=== PATIENT | female | born 1930 | race Caucasian/White ===

== ENCOUNTER → 2016-04-02 | Outpatient (CLI) | payer MEDICARE, BC ==
[~2016-04-02] MED LIST: ACETAMINOPHEN PO; ACTONEL; ACTONEL PO; ALDACTONE25 MG; ALLOPURINOL300 MG PO; AMIODARONE; ANTI-DIARRHEAL2 M1 PO; ASA; ASPIRIN EC81 M1 PO; ASPIRIN PO; ASPIRIN81 M2 PO; ATENOLOL PO; ATIVAN PO; ATIVAN0.5 MG PO; AZITHROMYCIN250 MG PO; AZMACORT20 GM; AZMACORT20 GM INH; BAYER CHEWABLE81 MG PO; BISACODYL10 MG/SUPP PR; BONINE PO; CALCIUM 500 + D1 TAB PO; CARTIA XT PO; CHERATUSSIN AC118 ML; CIPRO PO; CLARITIN10 M2 PO; CLARITIN10 M3 PO; CLEOCIN PO; COLACE PO; COLCHICINE PO; COLCRYS0.6 M2 PO; COUMADIN; COUMADIN PO; COUMADIN2.5 MG PO; COUMADIN5 MG; COUMADIN5 MG PO; DARVOCET-N 1001 TA1 PO; DIOVAN PO; FERROUS GL325 ( 36 ) PO; FERROUS SULFATE PO; FLONASE 0.05% N16 G1; FLONASE16 GM; FUROSEMIDE40 MG PO; HUMIBID-LA600 MG PO; HUMIBID1200 MG PO; IMDUR-ER60 M1 PO; IMDUR-ER60 MG; IMDUR-ER60 MG PO; INDOMETHACIN50 MG PO; IRON325 ( 651 PO; KCL 10% PO; KCL PO; KEFLEX500 M1 PO; KLOR-CON PO; LANOXIN PO; LASIX PO; LASIX20 MG PO; LEVAQUIN PO; LOPRESSOR PO; LORAZEPAM1 MG; LOVENOX SUBQ; MECLIZINE 25 MG; METOPROLOL; METOPROLOL SUCC50 MG PO; METOPROLOL TART25 MG PO; MICRO-K10 MEQ PO; MOBIC; MOBIC PO; MONTELUKAST SOD10 MG; MONTELUKAST SOD10 MG PO; NEPHROCAPS CAPSU1 MG PO; NEPHROCAPS1 CAP PO; NEURONTIN; NEURONTIN PO; OYSTER CALCIUM500 MG PO; PANTOPRAZOLE SO40 MG PO; POTASSIUM CHLO10 ME1 PO; POTASSIUM CHLO10 MEQ; POTASSIUM CL; POTASSIUM20 MEQ/15 PO; PRESERVISION1 EA PO; PROTONIX PO; RENAL SOFTGEL1 MG; REQUIP0.25 MG; REQUIP0.25 MG PO; REQUIP1 MG PO; REQUIP5 MG PO; ROPINIROLE HC0.25 MG PO; SENNA PO; SENOKOT TO GO8.6 MG; SINGULAIR PO; SOTALOL120 MG PO; TOPROL XL 50 MG50 MG PO; TOPROL XL PO; TYLENOL #3 PO; TYLENOL ES; TYLENOL EXTRA500 M1 PO; VICODIN 5/500 T1 TAB PO; VICODIN PO; VISION VITAMIN1 EACH PO; ZETIA; ZETIA PO; ZITHROMAX PO; ZYLOPRIM PO; [UNRECOGNIZED DRUG - OTHER] PO
== END | disposition home or self-care (01) ==
LOC: CRAD 09:17
DX: R13.10 Dysphagia, unspecified (principal)
CPT/HCPCS: 74230; 92611; G8996-GN; G8997-GN; G8998-GN

== ENCOUNTER → 2016-05-09 | Outpatient (CLI) | payer MEDICARE, BC ==
--- NOTE | ~2016-05-09 | CR97 ---
[facility] RADIOLOGY TEXT RESULTS PATIENT: SOBEIDA DUARTE LOCATION: [facility] : [birth year] UNIT #: [id number] AGE: [address]: Arie Motley MD SEX: F ORDER DR: [id number] [facility] [address] [place], [place] [address] [id number] O MR#: [id number] Acc #: [id number] NAME: SOBEIDA DUARTE : 1930 SEX: F STUDY DATE/TIME: 05/09/2016 9:53 UNIT: [facility] ROOM: STUDY DESCRIPTION: CR Esophagram Attending Physician: Arie Motley M.D. Referring Physician: Arie Motley M.D. Ordering Physician: Arie Motley M.D. Primary Care Physician: Branden Mcintosh M.D. MEDICAL IMAGING REPORT This report is preliminary unless electronic signature is present EXAM Esophagram 05/09/2016 HISTORY Difficulty swallowing for about 2 years, overall progressive with increasing discomfort. COMPARISON STUDIES None PROCEDURE Study performed with thin barium only. A total of 7 spot images were obtained, 1.1 minutes of fluoroscopy. FINDINGS Limited esophagram resulted in contrast remaining primarily retained within the esophagus throughout an additional 5 minutes of observation with the patient in the upright position. There were tertiary contractions and a small amount of contrast did flow through the gastroesophageal junction into the upper stomach. There is clearly no evidence of stricture or mass or mucosal irregularity. IMPRESSION 1. Disordered limited esophageal motility with no propulsive contractions and limited tertiary contractions. There is functional lack of esophageal outflow even with the patient in the upright position but there is no convincing evidence of a physical stricture or other physical obstruction to flow of contrast. 2. 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 However, again no stricture or acute appearing abnormality is seen. [facility] RADIOLOGY TEXT RESULTS PATIENT: SOBEIDA DUARTE LOCATION: [facility] : [birth year] UNIT #: [id number] AGE: [address]: Arie Motley MD SEX: F ORDER DR: Dictated by... Dino Campbell M.D. THIS IS AN ELECTRONICALLY VERIFIED REPORT Dino Campbell M.D. at 05/11/2016 4:14 PM ROSANNA/sachi TD: 05/10/2016 16:52 JOB #: [id number] MEDICAL IMAGING REPORT COPY
== END | disposition home or self-care (01) ==
LOC: CRAD 09:07
DX: R13.10 Dysphagia, unspecified (principal); K22.9 Disease of esophagus, unspecified
CPT/HCPCS: 74220